=== PATIENT | male | born 1985 | race Caucasian/White ===

== ENCOUNTER 2016-10-18 15:36 | Emergency (ER) | payer BC ==
[~2016-10-18] VITALS: Ht 185.4 cm; Wt 68.0 kg
[2016-10-18 17:15] LABS: BASO % 0.6 % (0.0-1.0); EOS # 0.2 10*3/uL (0.0-0.4); EOS % 3.9 % (1.0-4.0); HEMATOCRIT 43.7 % (42.0-52.0); HEMOGLOBIN 14.5 g/dl (14.0-18.0); LYMPH # 1.7 10*3/uL (1.3-4.4); LYMPH % 31.3 % (27.0-41.0); MEAN CELL VOLUME 91.2 fl (80.0-94.0); MEAN CORPUSCULAR HGB 30.3 pg (27.0-31.0); MEAN CORPUSCULAR HGB CONC 33.2 g/dl (33.0-37.0); MEAN PLATELET VOLUME 9.2 fl (9.6-12.3); MONO # 0.5 10*3/uL (0.1-1.0); MONO % 9.1 % (3.0-9.0); NEUT % 54.9 % (47.0-73.0); PLATELET COUNT AUTOMATED 262 10*3/uL (130-400); RED BLOOD COUNT 4.79 10*6/uL (4.50-5.90); RED CELL DISTRI WIDTH 13.2 % (0-14.5); WHITE BLOOD COUNT 5.4 10*3/uL (4.8-10.8)
[2016-10-18 17:30] LABS: BUN 21 mg/dl (7-24); CARBON DIOXIDE 30 mmol/L (21-32); CHLORIDE 102 mmol/L (98-107); EST GLOM FILT AFRICAN AMERICAN > 60 ml/min; GLUCOSE 93 mg/dL (65-99); POTASSIUM 4.5 mmol/L (3.5-5.1); SODIUM 137 mmol/L (136-145)
== END 2016-10-18 19:35 | disposition home or self-care (01) ==
LOC: ED 15:36 → EDSEX 15:40 → ED 15:40
PROVIDERS: Emergency Medicine
DX: T42.0X1A Poisoning by hydantoin derivatives, accidental (unintentional), initial encounter (principal); Y92.9 Unspecified place or not applicable

== ENCOUNTER → 2016-10-19 | Outpatient (CLI) | payer BC | END | disposition home or self-care (01) | LOC: LAB 10:50 | DX: G40.909 Epilepsy, unspecified, not intractable, without status epilepticus (principal) ==

== ENCOUNTER → 2016-10-23 | Outpatient (CLI) | payer BC ==
[~2016-10-23] MED LIST: DILANTIN30 MG PO; DILANTIN50 MG PO; KEPPRA1000 MG PO; LAMICTAL100 MG PO
== END | disposition home or self-care (01) ==
LOC: LAB 11:56
DX: Z02.89 Encounter for other administrative examinations (principal); T42.0X5A Adverse effect of hydantoin derivatives, initial encounter

== ENCOUNTER 2016-10-25 11:43 | Emergency (ER) | payer BC ==
[~2016-10-25] VITALS: Ht 185.4 cm; Wt 72.6 kg
[2016-10-25] MEDS ORDERED: DILANTIN30 MG PO (11:48)
[2016-10-25] MEDS ORDERED: LAMICTAL100 MG PO (11:49)
[2016-10-25] MEDS ORDERED: KEPPRA1000 MG PO (11:49)
[2016-10-25 13:15] LABS: BASO % 0.3 % (0.0-1.0); EOS # 0.3 10*3/uL (0.0-0.4); EOS % 2.1 % (1.0-4.0); HEMATOCRIT 42.5 % (42.0-52.0); HEMOGLOBIN 14.4 g/dl (14.0-18.0); IG # 0.1 10*3/uL (0.0-0.1); LYMPH # 1.6 10*3/uL (1.3-4.4); LYMPH % 13.5 % (27.0-41.0); MEAN CELL VOLUME 90.2 fl (80.0-94.0); MEAN CORPUSCULAR HGB 30.6 pg (27.0-31.0); MEAN CORPUSCULAR HGB CONC 33.9 g/dl (33.0-37.0); MONO # 0.8 10*3/uL (0.1-1.0); MONO % 6.6 % (3.0-9.0); NEUT # 9.4 10*3/uL (2.3-7.9); PLATELET COUNT AUTOMATED 226 10*3/uL (130-400); RED BLOOD COUNT 4.71 10*6/uL (4.50-5.90); RED CELL DISTRI WIDTH 13.2 % (0-14.5); WHITE BLOOD COUNT 12.2 10*3/uL (4.8-10.8)
[2016-10-25 13:17] LABS: BILIRUBIN NEGATIVE (NEGATIVE); BLOOD NEGATIVE (NEGATIVE); CLARITY CLEAR (CLEAR); COLOR YELLOW (YELLOW); GLUCOSE NEGATIVE (NEGATIVE); KETONE NEGATIVE (NEGATIVE); LEUKO ESTERASE NEGATIVE (NEGATIVE); NITRITE NEGATIVE (NEGATIVE); PH 5.5 (5.0-9.0); PROTEIN NEGATIVE (NEGATIVE); SPECIFIC GRAVITY 1.025 (1.005-1.030); UROBILINOGEN 0.2 E.U./dl (0.2-1.0)
[2016-10-25 13:29] LABS: URINE REFLEX COMMENT NO (NO)
[2016-10-25 13:32] LABS: ALBUMIN 4.1 gm/dl (3.1-4.5); BILIRUBIN, TOTAL 0.2 mg/dl (0.2-1.0); BUN 13 mg/dl (7-24); CARBON DIOXIDE 31 mmol/L (21-32); CHLORIDE 100 mmol/L (98-107); EST GLOM FILT AFRICAN AMERICAN > 60 ml/min; GLUCOSE 75 mg/dL (65-99); MAGNESIUM 1.9 mg/dL (1.5-2.1); POTASSIUM 4.4 mmol/L (3.5-5.1); SGOT/AST 21 IU/L (3-35); SGPT/ALT 23 U/L (12-78); SODIUM 138 mmol/L (136-145); TOTAL PROTEIN 7.4 gm/dL (6.4-8.2)
[2016-10-25 13:33] LABS: ALKALINE PHOSPHATASE 104 U/L (45-117)
[2016-10-25] MEDS ORDERED: DILANTIN50 MG PO (15:39)
== END 2016-10-25 22:43 | disposition short-term general hospital (02) ==
LOC: ED 11:43
PROVIDERS: Nurse Practitioner Family
DX: R56.9 Unspecified convulsions (principal)

== ENCOUNTER → 2016-11-02 | Outpatient (CLI) | payer BC | END | disposition home or self-care (01) | LOC: LAB 11:15 | DX: G40.909 Epilepsy, unspecified, not intractable, without status epilepticus (principal) ==